=== PATIENT | male | born 1940 | race Caucasian/White ===

== ENCOUNTER 2016-12-16 15:18 | Outpatient (CLI) ==
[2015-01-21 13:14] VITALS: BMI 35.9
--- NOTE | 2016-12-16 15:45 | DI ---
EXAM: Radiographs, right hip HISTORY: Right hip pain. COMPARISON: None available. TECHNIQUE: Two views. FINDINGS: Bone mineralization is normal. There is no fracture or dislocation. The joint spaces ar e maintained. No focal soft tissue abnormality is seen. IMPRESSION: No abnormality of the right hip.
--- NOTE | 2016-12-16 15:47 | DI ---
EXAM: Radiographs, lumbar spine HISTORY: Low back pain. Right hip pain. COMPARISON: None available. TECHNIQUE: Five views. FINDINGS: Curvature and alignment are normal. Vertebral body heights are maintained. Disc heights are normal. Multilevel endplate osteophyte formation noted which is mild. Multilevel facet arthro deny present, which is more moderate. No fracture or subluxation identified. Sacral arcuate lines are intact. Atherosclerotic calcifications present. Bowel gas pattern is nonspecific with mild ga seous distension of multiple small bowel loops. IMPRESSION: Mild to moderate degenerative changes.
== END 2016-12-16 15:19 | disposition home or self-care (01) ==
LOC: RAD 15:18
PROVIDERS: ATTEND Family Medicine
DX: M54.41 Lumbago with sciatica, right side (principal); M25.551 Pain in right hip